=== PATIENT | female | born 2000 | race Caucasian/White ===

== ENCOUNTER 2023-06-15 02:56 | Emergency (ER) | payer MEDICAID ==
[~2023-06-15] VITALS: Ht 162.6 cm; Wt 95.0 kg
[2023-06-15 03:02] VITALS: BP 135/98; PULSE 102; RESP 18; TEMP 98.6; O2SAT 96
== END 2023-06-15 06:17 | disposition left against medical advice (07) ==
LOC: ER 04:17
DX: H92.03 Otalgia, bilateral (principal); Z53.21 Procedure and treatment not carried out due to patient leaving prior to being seen by health care provider
CPT/HCPCS: 99281